=== PATIENT | female | born 1955 | race Caucasian/White ===

== ENCOUNTER 2021-09-29 17:52 | Emergency (ER) | payer MEDICARE, BC ==
[2021-09-29] MEDS ORDERED: Ondansetron 4 MG/2 ML SDV IV ONE (18:02)
[2021-09-29] MEDS ORDERED: cefTRIAXone 2 GM Vial IVPUSH STA (18:02)
[2021-09-29] MEDS ORDERED: Morphine 2 MG/ML SYRINGE IVPUSH ONE (18:02)
[2021-09-29] MEDS ORDERED: diphenhydrAMINE 50 MG/ML SDV IVPUSH ONE (18:02)
[2021-09-29] MEDS ORDERED: Lactated Ringers 1,000 ML IV ONE (18:34)
[2021-09-29 18:38] LABS: ANION GAP 18.4 meq/L (7-15); CHLORIDE,CL 94 mmol/L (98-107); SODIUM,NA 129 mmol/L (136-145)
[2021-09-29] MEDS: Sodium Chloride 0.9% 10 ML Syringe FLUSH PRN ×3 (18:51→19:05)
[2021-09-29] MEDS ORDERED: Sodium Chloride 0.9% 1,000 ML IV SCH (20:30)
== END 2021-09-29 21:05 | disposition home or self-care (01) ==
LOC: LL.ED 17:52
DX: N12 Tubulo-interstitial nephritis, not specified as acute or chronic (principal); E87.1 Hypo-osmolality and hyponatremia; Z79.82 Long term (current) use of aspirin; Z79.899 Other long term (current) drug therapy
CPT/HCPCS: 36415; 74176; 80053; 81001; 83605; 84145; 85025; 86140; 87040; 96374; 96375; 99284; 99284-25; J0696; J1200; J2270; J2405; J3490; J7030; J7120